=== PATIENT | female | born 1975 | race Caucasian/White ===

== ENCOUNTER → 2017-09-12 | Day surgery (SDC) | payer OTHER ==
[~2017-09-12] VITALS: Ht 160 cm; Wt 88.9 kg
--- NOTE | 2017-09-13 08:23 | Operative Report ---
Operative/Inv Procedure Report Surgery Date: 09/12/17 Name of Procedure: Excision soft tissue mass subfascial right Sikh Pre-Operative Diagnosis: Soft tissue mass deep right Sikh Post-Operative Diagnosis: Same Estimated Blood Loss: scant Surgeon/[employer] Clerk: Deepak GARCIA,Raghav Bah Anesthesia: laryngeal mask airway Operative/Procedure Note Note: Patient was counseled regards to the procedure the alternatives the risks and expected outcomes as relates to excision of a deep right temporal mass. The patient has had increasing symptoms with increase in size over a number of years. We talked about the risks which included but were not limited to infection bleeding pain numbness definitely visible permanent scarring possibly unsightly or symptomatic recurrence of the mass. In addition we talked about injury to the right orbicularis muscle and right frontalis due to the location of the mass and its likely depth. She was advised of indwelling injury to this nerve root mean Re: Loss of ability to raise the right eyebrow with a lack of forehead wrinkles. Once agreed informed consent was signed. She was taken to the operative placed supine on the table Venodyne boots are placed and general anesthesia was established intravenous antibiotics were given. The face was prepped and draped in usual sterile fashion. Excision was made deep through the skin and subcutaneous tissue blood dissection was carried out through the additional layers down to a large cystic mass. It was entered and cane contained noninfected contents. Was then bluntly dissected free from the overlying muscle. It was directly on bone. After the capsule was partially removed wound was irrigated and closed in anatomical layers careful to avoid any traversing structures. Pressure dressing was placed in the recovery room. Ends dictation
== END ==
LOC: STS 01:34
DX: L72.0 Epidermal cyst (principal); E11.9 Type 2 diabetes mellitus without complications; Z79.4 Long term (current) use of insulin; J45.909 Unspecified asthma, uncomplicated
CPT/HCPCS: 81025; 88304; J0690; J1100; J2405

== ENCOUNTER → 2017-10-30 | Day surgery (SDC) | payer OTHER ==
[~2017-10-30] VITALS: Ht 160 cm; Wt 86.2 kg
--- NOTE | 2017-10-30 13:10 | Operative Report ---
Operative/Inv Procedure Report Surgery Date: 10/30/17 Name of Procedure: Drains debride close complex postoperative wound condition Pre-Operative Diagnosis: Infection right face Post-Operative Diagnosis: Same Estimated Blood Loss: scant Surgeon/Enrollment Representative: Raghav Sotelo MD Anesthesia: laryngeal mask airway Operative/Procedure Note Note: The patient is a few weeks out of a excision of a right temporal mass. She is noticed onset of swelling pain and redness in the area of surgery. She presented to the office where a puncture aspiration showed purulent contents followed by pulsatile bleeding. Procedure was aborted to do it in the operating room in case there is a vascular component. She was started on antibiotics without improvement and states that there has been some drainage recently of a purulent nature from the old incision. We talked about opening the wound today cleaning debriding exploring and closing it due to cosmetic concerns with an additional risk of infection. She understands that this cannot risk of closing the wound in the face of an infection but is asking to have it done due to cosmetic concerns. She signed informed consent. She was brought to the operating room placed supine on the table Venodyne boots are placed and then general laryngeal mask anesthesia was established intravenous antibiotics given. The incision was completely opened and debrided of scar tissue. Small amount of purulence was identified which also tracked deeper. Curettage was used to debride the entire cavity and down into this tunnel which was heading down to bone. Bone was solid. Copious irrigation was carried out with an Angiocath and pressurized saline. There was no necrotic tissue in the wound and it was closed in layers. Culture was taken.
== END ==
LOC: STS 01:16
DX: T81.4XXA Infection following a procedure, initial encounter (principal); L02.01 Cutaneous abscess of face; Y83.8 Other surgical procedures as the cause of abnormal reaction of the patient, or of later complication, without mention of misadventure at the time of the procedure; E11.9 Type 2 diabetes mellitus without complications; Z79.4 Long term (current) use of insulin; J45.909 Unspecified asthma, uncomplicated
CPT/HCPCS: 87070; 87075; 81025; J0131; J0690; J1200; J2250